=== PATIENT | male | born 1975 | race African-American/Black ===

== ENCOUNTER 2018-08-07 22:12 | Emergency (ER) | payer OTHER, SELFPAY | END 2018-08-08 00:51 | disposition home or self-care (01) | LOC: ERS 22:12 | DX: N52.9 Male erectile dysfunction, unspecified (principal); I10 Essential (primary) hypertension; Z86.73 Personal history of transient ischemic attack (TIA), and cerebral infarction without residual deficits; E78.00 Pure hypercholesterolemia, unspecified; F41.9 Anxiety disorder, unspecified; F32.9 Major depressive disorder, single episode, unspecified | CPT/HCPCS: 99283 ==

== ENCOUNTER 2019-08-24 19:08 | Emergency (ER) | payer SELFPAY ==
[2019-08-24] MEDS ORDERED: Ketorolac Tromethamine 60 MG/2 ML VIAL ONE (20:20)
--- NOTE | 2019-08-24 20:43 | RAD ---
TWO VIEWS LEFT HIP: 08/24/19 HISTORY: Pain. COMPARISON: None. FINDINGS: Hip joint space is preserved. Contour of the femoral head is maintained and there is no fracture. Visualized bony pelvis is unremarkable. IMPRESSION: Unremarkable two views left hip. POS: PPP
== END 2019-08-24 20:55 | disposition home or self-care (01) ==
LOC: ERS 19:08
DX: M70.72 Other bursitis of hip, left hip (principal); I10 Essential (primary) hypertension; E78.00 Pure hypercholesterolemia, unspecified; F41.9 Anxiety disorder, unspecified; F32.9 Major depressive disorder, single episode, unspecified; Z86.73 Personal history of transient ischemic attack (TIA), and cerebral infarction without residual deficits
CPT/HCPCS: 96372; J1885

== ENCOUNTER 2021-02-23 08:42 | Outpatient (CLI) | payer BC ==
[2021-02-23 16:43] LABS: SARS-CoV-2 PCR by NAA Not Detected (NotDetected)
== END 2021-02-23 08:43 | disposition home or self-care (01) ==
LOC: LABBT 08:42
PROVIDERS: ATTEND Urology
DX: Z01.818 Encounter for other preprocedural examination (principal); R97.20 Elevated prostate specific antigen [PSA]; Z20.822 Contact with and (suspected) exposure to COVID-19
CPT/HCPCS: 36415; 81001; 84153; 87635; 93005; 93010; U0003; U0005

== ENCOUNTER 2021-02-26 06:27 | Day surgery (SDC) | payer BC ==
[2021-02-25 13:20] VITALS: BMI 41.1
[2021-02-26] MEDS ORDERED: cefTRIAXone\\ROCEPHIN 2 GM VIAL ONE (07:15)
[2021-02-26] MEDS ORDERED: Sodium Chloride 0.9% 100 ML ONE (07:15)
[2021-02-26] MEDS ORDERED: Acetaminophen 500 MG TAB ONE (07:17)
[2021-02-26] MEDS ORDERED: Ketamine 50 MG/ML (10ML VIAL) ONE (07:20)
[2021-02-26] MEDS ORDERED: Fentanyl 100 MCG/2 ML VIAL ONE (07:20)
[2021-02-26] MEDS ORDERED: Midazolam HCl 2 mg/2 ml Vial ONE (07:20)
[2021-02-26 07:36] LABS: #Eosinphils 0.2 thou/uL (0.0-0.7); #Lymphocytes 1.7 thou/uL (1.20-3.40); #Monocytes 0.6 thou/uL (0.11-0.59); #Neutrophils 3.4 thou/uL (1.40-6.50); %Basophils 0.7 % (0.0-1.0); %Eosinophils 3.3 % (0.0-10.0); %Lymphocytes 29.4 % (21.0-51.0); %Monocytes 9.5 % (0.0-10.0); %Neutrophils 57.1 % (42.0-75.0); Hemoglobin 13.1 g/dL (14.0-18.0); Mean Corpuscular Hemoglobin 28.6 pg (27.0-31.0); Mean Corpuscular Volume 81.6 fL (78.0-98.0); Mean Platelet Volume 9.2 fL (7.4-10.4); Platelet Count 167 thou/uL (130-400); RBC Distribution Width 13.3 % (11.5-14.5); Red Blood Cell (RBC) Count 4.59 mill/uL (4.70-6.10); White Blood Cell (WBC) Count 5.9 thou/uL (4.8-10.8)
[2021-02-26 07:54] LABS: Anion Gap 13 mmol/L (10-20); BUN (Urea Nitrogen) 18 mg/dL (8.9-20.6); Calc. Creatinine Clearance 173 mL/min (70-130); Calcium 8.7 mg/dL (7.8-10.44); Carbon Dioxide 26 mmol/L (22-29); Chloride 106 mmol/L (98-107); Glucose 122 mg/dL (70-105); Potassium 3.6 mmol/L (3.5-5.1); Sodium 141 mmol/L (136-145)
[2021-02-26] MEDS ORDERED: Labetalol HCl 100 MG/20 ML VIAL ONE ×2 (09:05→09:44)
[2021-02-26] MEDS ORDERED: PROPOFOL 200 MG/20 ML VIAL ONE (09:05)
[2021-02-26] MEDS ORDERED: Lidocaine 1% PF 5 ML VIAL ONE (09:05)
[2021-02-26] MEDS ORDERED: Lidocaine 1% (PF) 30 ML VIAL ONE (09:11)
[2021-02-26] MEDS ORDERED: HYDROcodone/Acetaminophen 5/325 mg Tablet ONE (10:44)
== END 2021-02-26 10:58 | disposition home or self-care (01) ==
LOC: SDC 06:27
PROVIDERS: ATTEND Urology
PROC: 0VT08ZZ Resection of Prostate, Via Natural or Artificial Opening Endoscopic (ICD-10-PCS; principal; 2021-02-26)
DX: N40.0 Benign prostatic hyperplasia without lower urinary tract symptoms (principal); F17.200 Nicotine dependence, unspecified, uncomplicated; Z79.899 Other long term (current) drug therapy
CPT/HCPCS: 80048; 85025; 88305; J0696; J2001; J2250; J2704; J3010; J3490

== ENCOUNTER 2021-08-02 11:49 | Emergency (ER) | payer BC ==
[2021-08-02] MEDS ORDERED: Ondansetron ODT 4 MG TAB ONE (13:34)
== END 2021-08-02 15:29 | disposition home or self-care (01) ==
LOC: ERS 11:49
DX: R11.2 Nausea with vomiting, unspecified (principal); I10 Essential (primary) hypertension; Z86.73 Personal history of transient ischemic attack (TIA), and cerebral infarction without residual deficits
CPT/HCPCS: 99283; Q0162

== ENCOUNTER 2021-09-11 15:58 | Emergency (ER) | payer BC | END 2021-09-11 17:27 | disposition home or self-care (01) | LOC: ERS 15:58 | DX: J20.8 Acute bronchitis due to other specified organisms (principal); I10 Essential (primary) hypertension; Z86.73 Personal history of transient ischemic attack (TIA), and cerebral infarction without residual deficits; Z79.899 Other long term (current) drug therapy | CPT/HCPCS: 99283 ==

== ENCOUNTER 2022-04-03 22:57 | Inpatient (IN) | payer SELFPAY ==
[~2022-04-03 22:57] MED LIST: Iopamidol-370 76% 500 ML 1 ML ONE
[2022-04-03 23:56] LABS: #Eosinphils 0.2 thou/uL (0.0-0.7); #Lymphocytes 1.9 thou/uL (1.20-3.40); #Monocytes 0.6 thou/uL (0.11-0.59); #Neutrophils 4.2 thou/uL (1.40-6.50); %Basophils 0.6 % (0.0-1.0); %Eosinophils 2.9 % (0.0-10.0); %Lymphocytes 27.3 % (21.0-51.0); %Monocytes 8.9 % (0.0-10.0); %Neutrophils 60.3 % (42.0-75.0); Mean Corpuscular HGB CONC 33.2 g/dL (32.0-36.0); Mean Corpuscular Hemoglobin 27.7 pg (27.0-31.0); Mean Corpuscular Volume 83.3 fL (78.0-98.0); Mean Platelet Volume 8.8 fL (7.4-10.4); Platelet Count 161 thou/uL (130-400); RBC Distribution Width 13.5 % (11.5-14.5)
[2022-04-04 00:20] LABS: ALT (SGPT) 18 U/L (8-55); AST (SGOT) 17 U/L (5-34); Albumin 4.1 g/dL (3.5-5.0); Alkaline Phosphatase 52 U/L (40-110); Anion Gap 13 mmol/L (10-20); BUN (Urea Nitrogen) 20 mg/dL (8.9-20.6); Bilirubin, Total 0.7 mg/dL (0.2-1.2); Calc. Creatinine Clearance 0 mL/min (70-130); Calcium 9.3 mg/dL (7.8-10.44); Carbon Dioxide 28 mmol/L (22-29); Chloride 106 mmol/L (98-107); Globulin 3.2 g/dL (2.4-3.5); Glucose 100 mg/dL (70-105); Potassium 3.3 mmol/L (3.5-5.1); Protein, Total 7.3 g/dL (6.0-8.3); Sodium 144 mmol/L (136-145)
[2022-04-04] MEDS ORDERED: Metoprolol Tartrate 5 MG/5 ML VIAL ONE (00:33)
[2022-04-04] MEDS ORDERED: Nitroglycerin 2% Ointment 1 INCH/1 GM Packet ONE (00:33)
[2022-04-04 00:44] LABS: CKMB 3.1 ng/mL (0-6.6)
[2022-04-04] MEDS ORDERED: hydrALAZINE 20 MG/ML VIAL ONE (01:55)
[2022-04-04] MEDS ORDERED: niCARdipine 25 MG/10 ML VIAL ONE (02:46)
[2022-04-04] MEDS ORDERED: Aspirin 325 MG TAB ONE (05:35)
[2022-04-04 06:05] LABS: SARS-CoV-2 NAA Rapid Test Not Detected (NotDetected)
[2022-04-04] MEDS ORDERED: Acetaminophen 500 MG TAB PO PRN (08:40)
[2022-04-04] MEDS ORDERED: Potassium Chloride 20 MEQ TAB PO SCH ×2 (08:45→17:00)
[2022-04-04] MEDS ORDERED: Enoxaparin Sodium 40 MG/0.4 ML SYRINGE ONE (08:46)
[2022-04-04] MEDS ORDERED: Aspirin Chewable 81 MG TAB ONE (08:46)
[2022-04-04] MEDS ORDERED: Acetaminophen 500 MG TAB ONE (08:46)
[2022-04-04] MEDS ORDERED: Hydrochlorothiazide 25 MG TAB PO SCH (09:00)
[2022-04-04] MEDS ORDERED: Aspirin 81 mg Enteric Coated Tablet PO SCH (09:00)
[2022-04-04] MEDS ORDERED: NIFEdipine XL 60 MG TAB PO SCH (09:00)
[2022-04-04] MEDS ORDERED: Enoxaparin Sodium 40 MG/0.4 ML SYRINGE SC SCH (09:00)
[2022-04-04 09:03] VITALS: BP 143/89
[2022-04-04] MEDS ORDERED: Potassium Chloride 20 MEQ TAB ONE (09:04)
[2022-04-04] MEDS ORDERED: Atorvastatin Calcium 40 MG TAB PO SCH (21:00)
== END 2022-04-04 15:14 | disposition home or self-care (01) | DRG 305 ==
LOC: ERS 22:57 → ERHOLD 04-04 04:38
PROVIDERS: ADMIT Family Medicine; ATTEND Family Medicine
DX: I16.1 Hypertensive emergency (principal); Z20.822 Contact with and (suspected) exposure to COVID-19; E66.01 Morbid (severe) obesity due to excess calories; E78.5 Hyperlipidemia, unspecified; E87.6 Hypokalemia; I10 Essential (primary) hypertension; F41.9 Anxiety disorder, unspecified; F32.A Depression, unspecified; Z98.890 Other specified postprocedural states; Z86.73 Personal history of transient ischemic attack (TIA), and cerebral infarction without residual deficits; Z79.899 Other long term (current) drug therapy; Z79.02 Long term (current) use of antithrombotics/antiplatelets; Z82.49 Family history of ischemic heart disease and other diseases of the circulatory system
CPT/HCPCS: 36415; 36416; 70450; 70496; 70498; 70551; 71045; 80053; 82553; 84443; 84484; 85025; 93005; J0360; J1650; Q9967; U0002

== ENCOUNTER 2022-11-01 17:57 | Emergency (ER) | payer BC, SELFPAY ==
[2022-11-01 18:21] LABS: Bilirubin Negative (Negative); Blood, Urine Negative (Negative); Clarity Clear (Clear); Glucose, Urine (Dipstick) Greater than 1000 mg/dL (Negative); Ketone, Urine Trace mg/dL (Negative); Leukocyte Negative Leu/uL (Negative); Nitrite Negative (Negative); Protein, Urine (Dipstick) Negative (Neg-Trace); Specific Gravity, Urine 1.018 (1.002-1.036); Urobilinogen Normal mg/dL (Less than 2); pH, Urine 5.5 (5.0-9.0)
[2022-11-01 18:25] LABS: #Eosinphils 0.1 thou/uL (0.0-0.7); #Lymphocytes 1.9 thou/uL (1.20-3.40); #Monocytes 0.6 thou/uL (0.11-0.59); %Basophils 0.4 % (0.0-1.0); %Eosinophils 1.3 % (0.0-10.0); %Lymphocytes 29.4 % (21.0-51.0); %Monocytes 8.3 % (0.0-10.0); %Neutrophils 60.6 % (42.0-75.0); Hemoglobin 14.7 g/dL (14.0-18.0); Mean Corpuscular HGB CONC 34.7 g/dL (32.0-36.0); Mean Corpuscular Volume 83.4 fl (78.0-98.0); Mean Platelet Volume 8.8 fL (7.4-10.4); Platelet Count 205 10x3/uL (130-400); Red Blood Cell (RBC) Count 5.09 mill/uL (4.70-6.10); White Blood Cell (WBC) Count 6.6 10x3/uL (4.8-10.8)
[2022-11-01 18:56] LABS: ALT (SGPT) 17 U/L (8-55); AST (SGOT) 15 U/L (5-34); Albumin 4.4 g/dL (3.5-5.0); Alkaline Phosphatase 51 U/L (40-110); Anion Gap 16 mmol/L (10-20); BUN (Urea Nitrogen) 19 mg/dL (8.9-20.6); Calc. Creatinine Clearance 0 mL/min (70-130); Calcium 10.5 mg/dL (7.8-10.44); Carbon Dioxide 29 mmol/L (22-29); Chloride 97 mmol/L (98-107); Estimated GFR 56; Globulin 3.6 g/dL (2.4-3.5); Glucose 373 mg/dL (70-105); Potassium 3.7 mmol/L (3.5-5.1); Sodium 138 mmol/L (136-145)
[2022-11-01] MEDS ORDERED: Insulin Regular 300 UNITS/3 ML VIAL ONE (21:13)
== END 2022-11-01 22:20 | disposition home or self-care (01) ==
LOC: ERS 17:57
DX: R31.9 Hematuria, unspecified (principal); E11.65 Type 2 diabetes mellitus with hyperglycemia; I10 Essential (primary) hypertension
CPT/HCPCS: 36415; 36416; 74176; 80053; 81003; 85025; 87086; J1815

== ENCOUNTER 2024-10-03 09:45 | Emergency (ER) | payer OTHER ==
[2024-10-03] MEDS ORDERED: Acetaminophen 500 MG TAB ONE (10:57)
[2024-10-03] MEDS ORDERED: Ibuprofen 800 MG TAB ONE (10:57)
== END 2024-10-03 12:08 | disposition home or self-care (01) ==
LOC: ERS 09:45
DX: J10.00 Influenza due to other identified influenza virus with unspecified type of pneumonia (principal); E11.9 Type 2 diabetes mellitus without complications; I10 Essential (primary) hypertension
CPT/HCPCS: 71045; 87428

== ENCOUNTER 2025-09-16 23:42 | Inpatient (IN) | payer OTHER, SELFPAY ==
[2025-09-17 02:46] LABS: #Basophils Less than 0.03 10x3/uL (0.0-0.2); #Eosinophils 0.12 10x3/uL (0.0-0.7); #Monocytes 0.66 10x3/uL (0.11-0.59); #Neutrophils 3.55 10x3/uL (1.40-6.50); %Basophils 0.2 % (0.0-1.0); %Eosinophils 2.2 % (0.0-10.0); %Lymphocytes 20.2 % (21.0-51.0); %Monocytes 12.0 % (0.0-10.0); %Neutrophils 64.7 % (42.0-75.0); Hematocrit 35.9 % (42.0-52.0); Hemoglobin 11.9 g/dL (14.0-18.0); Mean Corpuscular Hemoglobin 26.7 pg (27.0-31.0); Mean Corpuscular Volume 80.5 fL (78.0-98.0); Platelet Count 175 10x3/uL (130-400); Red Blood Cell (RBC) Count 4.46 mill/uL (4.70-6.10); White Blood Cell (WBC) Count 5.49 10x3/uL (4.8-10.8)
[2025-09-17 03:03] LABS: ALT (SGPT) 18 U/L (Less than 45); AST (SGOT) 26 U/L (11-34); Albumin 4.0 g/dL (3.1-4.5); Alkaline Phosphatase 53 U/L (40-110); Anion Gap 10 mmol/L (10-20); BUN (Urea Nitrogen) 19 mg/dL (8.9-20.6); Bilirubin, Total 1.0 mg/dL (0.3-1.2); Calc. Creatinine Clearance 0 mL/min (70-130); Calcium 9.2 mg/dL (7.8-10.44); Carbon Dioxide 27 mmol/L (22-29); Chloride 107 mmol/L (98-107); Globulin 3.1 g/dL (2.4-3.5); Glucose 133 mg/dL (70-105); Potassium 3.6 mmol/L (3.5-5.1); Sodium 140 mmol/L (136-145)
[2025-09-17 03:05] LABS: Actual Bicarbonate (HCO3v) 24.0 mEq/L (22-28); Base Excess -2.0 mEq/L (-2.0 to +3.0); Calcium, Ionized (venous) 1.18 mmol/L (1.16-1.32); Chloride (VBG) 105 mmol/L (98-106); Hematocrit-VBG 39 % (42.0-52.0); Hemoglobin (Hb) 13.2 g/dL (13.1-17.2); Potassium (VBG) 3.60 mmol/L (3.70-5.30); Sodium 143 mmol/L (133-146)
[2025-09-17 03:11] LABS: Bacteria/HPF None Seen HPF (None Seen); CAUTI Indications for Culture Pelvic or flank pain; Glucose, Urine (Dipstick) Normal (Negative); Leukocyte Negative Leu/uL (Negative); Protein, Urine (Dipstick) 20 mg/dL (Neg-Trace); RBC/HPF 0-3 HPF (0-3); Specific Gravity, Urine 1.012 (1.002-1.036); WBC/HPF None Seen HPF (0-3)
[2025-09-17 03:15] LABS: Urine Culture Reflex No No
[2025-09-17] MEDS ORDERED: Nitroglycerin 0.4 MG TAB 1 EACH ONE (03:42)
[2025-09-17] MEDS ORDERED: Furosemide 40 MG (4 mL) VIAL ONE (03:58)
[2025-09-17] MEDS ORDERED: hydrALAZINE 20 MG/ML VIAL ONE (05:12)
[2025-09-17] MEDS ORDERED: Metoclopramide HCl 10 MG (2 mL) VIAL IVP PRN (06:03)
[2025-09-17 06:30] VITALS: BMI 39.5
[2025-09-17] MEDS ORDERED: Iopamidol-370 76% 500 ML MDV (1 ML CHARGE) ONE (09:11)
[2025-09-17] MEDS: Metoprolol Succinate XL 100 MG ER.TAB PO SCH (09:35)
[2025-09-17] MEDS: Acetaminophen 325 MG TAB PO PRN (09:35)
[2025-09-17] MEDS: NIFEdipine XL 60 MG ER.TAB PO SCH (09:35)
[2025-09-17] MEDS: Enoxaparin 40 MG (0.4 mL) SYRINGE SC SCH (09:35)
[2025-09-17] MEDS: Furosemide 40 MG (4 mL) VIAL SLOW IVP SCH (13:52)
[2025-09-17] MEDS ORDERED: Furosemide 40 MG (4 mL) VIAL SLOW IVP SCH (14:00)
[2025-09-17] MEDS: Aspirin 81 mg Enteric Coated Tablet PO SCH (20:35)
[2025-09-18 05:00] LABS: ALT (SGPT) 15 U/L (Less than 45); AST (SGOT) 16 U/L (11-34); Albumin 3.9 g/dL (3.1-4.5); Alkaline Phosphatase 47 U/L (40-110); Anion Gap 13 mmol/L (10-20); BUN (Urea Nitrogen) 20 mg/dL (8.9-20.6); Bilirubin, Total 1.0 mg/dL (0.3-1.2); Calc. Creatinine Clearance 131 mL/min (70-130); Calcium 9.6 mg/dL (7.8-10.44); Carbon Dioxide 27 mmol/L (22-29); Chloride 107 mmol/L (98-107); Globulin 3.0 g/dL (2.4-3.5); Glucose 145 mg/dL (70-105); Magnesium 2.1 mg/dL (1.6-2.6); Potassium 3.6 mmol/L (3.5-5.1); Sodium 143 mmol/L (136-145)
[2025-09-18 05:04] LABS: #Basophils Less than 0.03 10x3/uL (0.0-0.2); #Eosinophils 0.17 10x3/uL (0.0-0.7); #Monocytes 0.66 10x3/uL (0.11-0.59); #Neutrophils 2.89 10x3/uL (1.40-6.50); %Basophils 0.4 % (0.0-1.0); %Eosinophils 3.1 % (0.0-10.0); %Lymphocytes 29.8 % (21.0-51.0); %Monocytes 12.2 % (0.0-10.0); %Neutrophils 53.6 % (42.0-75.0); Hematocrit 37.6 % (42.0-52.0); Hemoglobin 12.1 g/dL (14.0-18.0); Mean Corpuscular Hemoglobin 26.3 pg (27.0-31.0); Mean Corpuscular Volume 81.7 fL (78.0-98.0); Platelet Count 215 10x3/uL (130-400); Red Blood Cell (RBC) Count 4.60 mill/uL (4.70-6.10); White Blood Cell (WBC) Count 5.40 10x3/uL (4.8-10.8)
[2025-09-18] MEDS ORDERED: Communication Order-Pharmacy FS SCH (12:45)
[2025-09-18] MEDS ORDERED: Adenosine 6 mg (2 mL) VIAL ONE (13:14)
[2025-09-18] MEDS ORDERED: Heparin 10,000 UNITS/ 10 ML VIAL ONE ×2 (13:15→14:35)
[2025-09-18] MEDS ORDERED: Iopamidol 370 76% 100 ML VIAL ONE (13:15)
[2025-09-18] MEDS ORDERED: PHENYLEPHRINE-NS 100 MCG/ML 10 ML SYRINGE ONE (13:15)
[2025-09-18] MEDS ORDERED: Nitroglycerin 50 MG/250 ML BOT 250 ML ONE (13:15)
[2025-09-18] MEDS ORDERED: EPINEPHrine 1 MG/10 ML Abboject SYRINGE ONE (13:15)
[2025-09-18] MEDS ORDERED: Lidocaine 1% (PF) 30 ML VIAL ONE (13:42)
[2025-09-18] MEDS ORDERED: Nitroglycerin 0.4 MG TAB (25 Tab Bottle) SL PRN (14:49)
[2025-09-18] MEDS ORDERED: Acetaminophen/Codeine 30-300mg Tablet PO PRN (14:49)
[2025-09-18] MEDS: Acetaminophen/Codeine 30-300mg Tablet PO PRN (21:01)
[2025-09-19] MEDS: Furosemide 40 MG (4 mL) VIAL SLOW IVP SCH (05:38)
[2025-09-19 05:56] LABS: Anion Gap 9 mmol/L (10-20); BUN (Urea Nitrogen) 21 mg/dL (8.9-20.6); Calc. Creatinine Clearance 141 mL/min (70-130); Calcium 9.0 mg/dL (7.8-10.44); Carbon Dioxide 27 mmol/L (22-29); Chloride 107 mmol/L (98-107); Glucose 121 mg/dL (70-105); Potassium 3.5 mmol/L (3.5-5.1); Sodium 139 mmol/L (136-145)
[2025-09-19] MEDS ORDERED: Furosemide 40 MG TAB PO SCH (07:30)
[2025-09-19 08:23] VITALS: TEMP 97.8
[2025-09-19 12:29] VITALS: BP 112/78
== END 2025-09-19 12:30 | disposition home or self-care (01) | DRG 287 ==
LOC: ERS 23:42 → 2NO 09-17 05:09
PROVIDERS: ADMIT Internal Medicine; ATTEND Internal Medicine
PROC: 4A023N7 Measurement of Cardiac Sampling and Pressure, Left Heart, Percutaneous Approach (ICD-10-PCS; principal; 2025-09-17)
PROC: B2111ZZ Fluoroscopy of Multiple Coronary Arteries using Low Osmolar Contrast (ICD-10-PCS; 2025-09-17)
PROC: B2151ZZ Fluoroscopy of Left Heart using Low Osmolar Contrast (ICD-10-PCS; 2025-09-17)
DX: I11.0 Hypertensive heart disease with heart failure (principal); Z88.0 Allergy status to penicillin; I42.9 Cardiomyopathy, unspecified; Z98.890 Other specified postprocedural states; N40.0 Benign prostatic hyperplasia without lower urinary tract symptoms; I50.9 Heart failure, unspecified; Z91.148 Patient's other noncompliance with medication regimen for other reason; G47.30 Sleep apnea, unspecified; E66.9 Obesity, unspecified; Z68.39 Body mass index [BMI] 39.0-39.9, adult; Z79.899 Other long term (current) drug therapy
CPT/HCPCS: 36415; 71045; 71275; 78452; 80048; 80053; 81001; 82805; 83735; 83880; 84443; 84484; 85025; 93005; 93017; 93306; 93458; 93798; 94760; 96374; 96375; 99152; A9502; C1769; C1894; J0153; J0165; J0360; J0461; J1644; J1650; J1940; J2003; J2250; J2785; J3010; J7030; Q9967